=== PATIENT | female | born 1980 | race Caucasian/White ===

== ENCOUNTER 2016-09-22 14:22 | Emergency (ER) | payer SELFPAY ==
--- NOTE | 2016-09-22 15:12 | ER Document Report ---
ED Medical Screen (RME) - General Stated Complaint: PSYCH EVAL Notes: patient has a h/o ADD on adderall no mental h/o, denies depression, bipolar patient has been having hallucinations about relationships with famous people denies SI, HI I have greeted and performed a rapid initial assessment of this patient. A comprehensive ED assessment and evaluation of the patient, analysis of test results and completion of the medical decision making process will be conducted by additional ED providers. Physical Exam - Vital signs Vitals: Temp Pulse Resp BP Pulse Ox 98.0 F 120 H 20 153/95 H 100 09/22/16 14:42 09/22/16 14:42 09/22/16 14:42 09/22/16 14:42 09/22/16 14:42 Course - Vital Signs Vital signs: Temp Pulse Resp BP Pulse Ox 98.0 F 120 H 20 153/95 H 100 09/22/16 14:42 09/22/16 14:42 09/22/16 14:42 09/22/16 14:42 09/22/16 14:42
--- NOTE | 2016-09-22 15:42 | ER Document Report ---
ED Psych Disorder / Suicide - General Time seen by provider: 16:15 Mode of Arrival: Medic Information source: Patient, Parent TRAVEL OUTSIDE OF THE [place] IN LAST 30 DAYS: No - HPI Patient complains to provider of: Bizarre behavior Onset: Other - see HPI notes <CELIA BOYD - Last Filed: 09/22/16 17:25> <CECILIA WHITE - Last Filed: 09/22/16 19:29> - General Chief Complaint: Other Stated Complaint: PSYCH EVAL Notes: Patient is a 36-year-old female presenting to the emergency department for a psych evaluation. Patient states that she got out of the shower and her mother was crying on the couch. Patient states that her parents were not letting her leave the house and they called EMS to bring her into the emergency department. Patient states she does not know why she is here. Per triage note "patient states that she is having problems at home. Patient states that she was told she couldn't leave the house by her parents. Father of patient states that this patient is seeing and hearing things. States that she knows people that she doesn't know such as Rick Santoro. Father states that this patient is saying that people are taking things from her that aren't there. Patient denies hurting anyone in the house or herself. Patient states that she doesn't work." Patient denies any hallucinations, or previous psychiatric behavior/medical history. Patient states she just takes Adderall for her ADD. Patient is allergic to cefaclor and penicillin. Patient states that her parents are in the lobby and that they are the ones to talk to about why she is here. Patient is quickly scribbling and writing in a notebook at time of exam. (CELIA BOYD) - Related Data Allergies/Adverse Reactions: cefaclor [From Ceclor] Allergy (Verified 09/22/16 15:07) Penicillins Adverse Reaction (Verified 09/22/16 15:07) Past Medical History - General Information source: Patient - Social History Smoking Status: Current Every Day Smoker Chew tobacco use (# tins/day): No Frequency of alcohol use: None Drug Abuse: Marijuana Family History: None Patient has suicidal ideation: No Patient has homicidal ideation: No Psychiatric Medical History: Reports: Other - ADD-treated with Adderall Surgical Hx: Negative <CELIA BOYD - Last Filed: 09/22/16 17:25> Review of Systems - Review of Systems Constitutional: No symptoms reported EENT: No symptoms reported Cardiovascular: No symptoms reported Respiratory: No symptoms reported Gastrointestinal: No symptoms reported Genitourinary: No symptoms reported Female Genitourinary: No symptoms reported Musculoskeletal: No symptoms reported Skin: No symptoms reported Hematologic/Lymphatic: No symptoms reported Neurological/Psychological: See HPI -: Yes All other systems reviewed and negative <DEBCELIA - Last Filed: 09/22/16 17:25> Physical Exam - Vital signs Interpretation: Tachycardic - General General appearance: Appears well, Alert In distress: None - HEENT Head: Normocephalic, Atraumatic Eyes: Normal Pupils: PERRL Mucous membranes: Moist - Respiratory Respiratory status: No respiratory distress Chest status: Nontender Breath sounds: Normal Chest palpation: Normal - Cardiovascular Rhythm: Regular, Tachycardia Heart sounds: Normal auscultation Murmur: No - Abdominal Inspection: Normal Distension: No distension Bowel sounds: Normal Tenderness: Nontender Organomegaly: No organomegaly - Back Back: Normal, Nontender - Extremities General upper extremity: Normal inspection, Normal ROM, Normal strength General lower extremity: Normal inspection, Normal ROM, Normal strength - Neurological Neuro grossly intact: Yes Cognition: Normal Orientation: AAOx4 [place] Coma Scale Eye Opening: Spontaneous [place] Coma Scale Verbal: Oriented Ricki Coma Scale Motor: Obeys Commands Ricki Coma Scale Total: 15 Speech: Normal - Psychological Associated symptoms: Uncooperative, Other - pressured speech - Skin Skin Temperature: Warm Skin Moisture: Dry <DEBCELIA - Last Filed: 09/22/16 17:25> Course <DEBCELIA - Last Filed: 09/22/16 17:25> - Laboratory Result Diagrams: 09/22/16 18:50 09/22/16 18:50 <CECILIA WHITE - Last Filed: 09/22/16 19:29> - Re-evaluation Re-evalutation: 09/22/16 19:23 Patient is a 36-year-old female who comes in because her family was concerned about her recent behavior. Patient apparently is having delusions of grandeur. Patient is apparently sleeping at night per mother. Patient has been evaluated by mental health and concern of elliot versus overuse of Adderall. Patient is going to be kept in the emergency department to be reevaluated in the morning. She denies suicidal or homicidal ideation. She apparently has been hallucinating although she denies. (CECILIA WHITE) - Vital Signs Vital signs: Temp Pulse Resp BP Pulse Ox 98 F 122 H 20 153/95 H 100 09/22/16 15:07 09/22/16 15:07 09/22/16 15:07 09/22/16 15:07 09/22/16 15:07 (CELIA BOYD) (CECILIA WHITE) - Laboratory Laboratory results interpreted by me: 09/22/16 18:50 Glucose 57 L Salicylates < 1.0 L Acetaminophen < 10 L (CECILIA WHITE) Discharge <CELIA BOYD - Last Filed: 09/22/16 17:25> <CECILIA WHITE - Last Filed: 09/22/16 19:29> - Discharge Clinical Impression: Behavior disturbance Condition: Stable Disposition: OTHER Scribe Attestation: 09/22/16 19:25 I personally performed the services described in the documentation, reviewed and edited the documentation which was dictated to the scribe in my presence, and it accurately records my words and actions. (CECILIA WHITE) Scribe Documentation - Scribe Written by Scribe:: Celia Boyd 09/22/16 16:35 acting as scribe for :: Candida <CELIA BOYD - Last Filed: 09/22/16 17:25>
[2016-09-22 15:55] LABS: URINE BARBITURATES SCREEN NEGATIVE; URINE METHADONE SCREEN NEGATIVE; URINE OPIATES LOW NEGATIVE; URINE PHENCYCLIDINE SCREEN NEGATIVE
[2016-09-22 19:04] LABS: ABSOLUTE BASOPHILS # (AUTO) 0.1 10^3/uL (0.0-0.2); ABSOLUTE EOSINOPHILS # (AUTO) 0.1 10^3/uL (0.0-0.6); ABSOLUTE LYMPHOCYTES (AUTO) 2.4 10^3/uL (0.5-4.7); ABSOLUTE MONOCYTES (AUTO) 0.6 10^3/uL (0.1-1.4); ABSOLUTE NEUT (AUTO) 6.1 10^3/uL (1.7-8.2); BASOPHILS % (AUTO) 0.7 % (0-2); HEMATOCRIT 43.6 % (36.0-47.0); HEMOGLOBIN 14.6 g/dL (12.0-15.5); HGB HCT DIFFERENCE 0.2; LYMPHOCYTES % (AUTO) 25.6 % (13-45); MEAN CORPUSCULAR HEMOGLOBIN 29.1 pg (27.0-33.4); MEAN CORPUSCULAR HGB CONC 33.5 g/dL (32.0-36.0); MEAN CORPUSCULAR VOLUME 87 fl (80-97); MONOCYTES % (AUTO) 6.5 % (3-13); RED BLOOD COUNT 5.01 10^6/uL (3.72-5.28); RED CELL DISTRIBUTION WIDTH 13.8 % (11.5-14.0); SEGMENTED NEUTROPHILS % (AUTO) 66.2 % (42-78); WHITE BLOOD COUNT 9.2 10^3/uL (4.0-10.5)
--- NOTE | 2016-09-22 19:11 | EKG REPORT ---
SEVERITY:- NORMAL ECG - SINUS RHYTHM : Confirmed by: Steven Atkins MD 22-Sep-2016 19:11:21
[2016-09-22 19:20] LABS: ALANINE AMINOTRANSFERASE 22 U/L (9-52); ALBUMIN 4.3 g/dL (3.5-5.0); ALKALINE PHOSPHATASE 57 U/L (38-126); ANION GAP 9 (5-19); ASPARTATE AMINO TRANSFERASE 15 U/L (14-36); BILIRUBIN,TOTAL 0.6 mg/dL (0.2-1.3); BLOOD UREA NITROGEN 11 mg/dL (7-20); CARBON DIOXIDE 30 mmol/L (22-30); CHLORIDE 101 mmol/L (98-107); CREATININE RESULT 0.69 mg/dL (0.52-1.25); GLUCOSE 57 mg/dL (75-110); POTASSIUM 3.7 mmol/L (3.6-5.0); SODIUM 140.2 mmol/L (137-145); TOTAL PROTEIN 7.4 g/dL (6.3-8.2)
[2016-09-22 19:22] LABS: ALCOHOL < 10 mg/dL (NONE DETECTED)
[2016-09-23 02:56] LABS: APPEARANCE,URINE CLOUDY; BILIRUBIN,URINE NEGATIVE (NEGATIVE); GLUCOSE, URINE NEGATIVE (NEGATIVE); KETONES,URINE NEGATIVE (NEGATIVE); LEUKOCYTE ESTERASE,URINE NEGATIVE (NEGATIVE); NITRITE,URINE NEGATIVE (NEGATIVE); PROTEIN,URINE NEGATIVE (NEGATIVE); URINE SPECIFIC GRAVITY 1.024; UROBILINOGEN,URINE NEGATIVE mg/dL (<2.0)
[2016-09-23 11:14] VITALS: BP 131/94
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
== END 2016-09-23 12:04 | disposition home or self-care (01) ==
LOC: ER 14:22
DX: F91.9 Conduct disorder, unspecified (principal); F98.8 Other specified behavioral and emotional disorders with onset usually occurring in childhood and adolescence; R00.0 Tachycardia, unspecified; Z79.899 Other long term (current) drug therapy; Z88.0 Allergy status to penicillin; Z88.1 Allergy status to other antibiotic agents
CPT/HCPCS: 36415; 80053; 80307; 81001; 84703; 85025; 93005; 93010; 99285

== ENCOUNTER → 2017-09-18 | Outpatient (CLI) | payer SELFPAY ==
--- NOTE | 2017-09-18 16:14 | RADIOLOGY REPORT (SQ) ---
EXAM DESCRIPTION: SHOULDER RIGHT 2 OR MORE VIEWS COMPLETED DATE/TIME: 09/18/2017 4:02 pm REASON FOR STUDY: PAIN IN RIGHT SHOULDER M25.511 PAIN IN RIGHT SHOULDER COMPARISON: None. NUMBER OF VIEWS: Three views. TECHNIQUE: Internal rotation, external rotation, and Y view images acquired of the right shoulder. LIMITATIONS: None. FINDINGS: MINERALIZATION: Normal. BONES: No acute fracture or dislocation. No worrisome bone lesions. JOINTS: No dislocation. VISUALIZED LUNGS AND RIBS: No pneumothorax. No rib fracture. SOFT TISSUES: No radiopaque foreign body. OTHER: No other significant finding. IMPRESSION: NEGATIVE STUDY OF THE RIGHT SHOULDER. NO RADIOGRAPHIC EVIDENCE OF ACUTE INJURY. TECHNICAL DOCUMENTATION: JOB ID: [id number] [employer]- All Rights Reserved
== END ==
LOC: OD 15:36
PROVIDERS: ATTEND Nurse Practitioner Family
DX: M25.511 Pain in right shoulder (principal)

== ENCOUNTER 2018-02-28 16:16 | Emergency (ER) | payer BC ==
[2018-02-28 16:19] VITALS: BP 151/96
[2018-02-28] MEDS ORDERED: CYCLOBENZAPRINE HCL 10 MG TABLET PO ONE (16:44)
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
== END 2018-02-28 16:56 | disposition home or self-care (01) ==
LOC: ER 16:16
DX: G89.29 Other chronic pain (principal); M25.511 Pain in right shoulder; M89.8X1 Other specified disorders of bone, shoulder; Z79.891 Long term (current) use of opiate analgesic; Z79.899 Other long term (current) drug therapy; S43.401A Unspecified sprain of right shoulder joint, initial encounter; Y04.0XXA Assault by unarmed brawl or fight, initial encounter; R45.1 Restlessness and agitation
CPT/HCPCS: 99283

== ENCOUNTER 2018-11-17 16:33 | Emergency (ER) | payer SELFPAY ==
[2018-11-17 17:39] LABS: ABSOLUTE BASOPHILS # (AUTO) 0.1 10^3/uL (0.0-0.2); ABSOLUTE EOSINOPHILS # (AUTO) 0.1 10^3/uL (0.0-0.6); ABSOLUTE MONOCYTES (AUTO) 0.7 10^3/uL (0.1-1.4); ABSOLUTE NEUT (AUTO) 6.8 10^3/uL (1.7-8.2); BASOPHILS % (AUTO) 0.5 % (0-2); EOSINOPHILS % (AUTO) 1.4 % (0-6); HEMATOCRIT 37.7 % (36.0-47.0); LYMPHOCYTES % (AUTO) 28.1 % (13-45); MEAN CORPUSCULAR HEMOGLOBIN 29.7 pg (27.0-33.4); MEAN CORPUSCULAR HGB CONC 34.5 g/dL (32.0-36.0); MEAN CORPUSCULAR VOLUME 86 fl (80-97); MONOCYTES % (AUTO) 6.2 % (3-13); PLATELET COUNT 311 10^3/uL (150-450); RED BLOOD COUNT 4.38 10^6/uL (3.72-5.28); RED CELL DISTRIBUTION WIDTH 13.6 % (11.5-14.0); SEGMENTED NEUTROPHILS % (AUTO) 63.8 % (42-78); TOTAL CELLS COUNTED % (AUTO) 100 %; WHITE BLOOD COUNT 10.6 10^3/uL (4.0-10.5)
[2018-11-17 17:44] LABS: APPEARANCE,URINE SLIGHTLY-CLOUDY; BILIRUBIN,URINE NEGATIVE (NEGATIVE); COLOR,URINE YELLOW; GLUCOSE, URINE NEGATIVE (NEGATIVE); KETONES,URINE NEGATIVE (NEGATIVE); LEUKOCYTE ESTERASE,URINE NEGATIVE (NEGATIVE); NITRITE,URINE POSITIVE (NEGATIVE); PROTEIN,URINE NEGATIVE (NEGATIVE); URINE SPECIFIC GRAVITY 1.013; UROBILINOGEN,URINE NEGATIVE mg/dL (<2.0)
[2018-11-17 17:52] LABS: ALANINE AMINOTRANSFERASE 30 U/L (9-52); ALKALINE PHOSPHATASE 85 U/L (38-126); ANION GAP 10 (5-19); ASPARTATE AMINO TRANSFERASE 25 U/L (14-36); BILIRUBIN,DIRECT 0.3 mg/dL (0.0-0.4); BILIRUBIN,TOTAL 0.4 mg/dL (0.2-1.3); BLOOD UREA NITROGEN 11 mg/dL (7-20); CALCIUM 9.8 mg/dL (8.4-10.2); CARBON DIOXIDE 27 mmol/L (22-30); CHLORIDE 101 mmol/L (98-107); GLUCOSE 90 mg/dL (75-110); SODIUM 137.6 mmol/L (137-145); TOTAL PROTEIN 6.9 g/dL (6.3-8.2)
[2018-11-17 18:02] LABS: URINE AMPHETAMINES SCREEN NEGATIVE; URINE BARBITURATES SCREEN NEGATIVE; URINE BENZODIAZEPINES SCREEN NEGATIVE; URINE COCAINE SCREEN NEGATIVE; URINE MARIJUANA (THC) SCREEN UNCONFIRMED POSITIVE; URINE METHADONE SCREEN UNCONFIRMED POSITIVE; URINE PHENCYCLIDINE SCREEN NEGATIVE
[2018-11-17 19:31] LABS: ACETAMINOPHEN < 10 ug/mL (10-30); ALCOHOL < 10 mg/dL (NONE DETECTED); POTASSIUM 3.7 mmol/L (3.6-5.0); SALICYLATE < 1.0 mg/dL (2.0-20.0)
[2018-11-17] MEDS ORDERED: ZOLPIDEM TARTRATE 5 MG TABLET PO PRN (19:43)
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
[2018-11-17] MEDS ORDERED: IBUPROFEN 600 MG TABLET PO ONE (21:57)
--- NOTE | 2018-11-18 08:47 | ER Document Report ---
ED Medical Screen (RME) - General Chief Complaint: Psych Problem Stated Complaint: PSYCH EVAL Time Seen by Provider: 11/17/18 19:41 Notes: Patient pending disposition by psychiatry. Patient was seen by me this morning no acute distress awake and alert, she does not have any acute complaints. We will discuss her with psychiatry later. TRAVEL OUTSIDE OF THE [place] IN LAST 30 DAYS: Yes - Related Data Allergies/Adverse Reactions: [facility] Allergy (Verified 02/28/18 16:16) Penicillins Adverse Reaction (Verified 02/28/18 16:16) Past Medical History - Social History Chew tobacco use (# tins/day): No Frequency of alcohol use: Occasional Drug Abuse: Marijuana Renal/ Medical History: Denies: Hx Peritoneal Dialysis Psychiatric Medical History: Reports: Hx Anxiety, Hx Attention Deficit Hyp eractivity Disorder Physical Exam - Vital signs Vitals: Temp Pulse Resp Pulse Ox 98.4 F 84 18 97 11/17/18 17:05 11/17/18 17:05 11/17/18 17:05 11/17/18 17:05 Course - Vital Signs Vital signs: Temp Pulse Resp BP Pulse Ox 98.0 F 86 16 154/94 H 98 11/17/18 20:54 11/17/18 20:54 11/17/18 22:00 11/17/18 20:54 11/17/18 20:54 - Laboratory Result Diagrams: 11/17/18 17:20 11/17/18 17:20 Laboratory results interpreted by me: 11/17/18 11/17/18 11/17/18 16:48 17:20 17:20 WBC 10.6 H Urine Blood MODERATE H Urine Nitrite POSITIVE H Salicylates < 1.0 L Acetaminophen < 10 L
[2018-11-18] MEDS ORDERED: HALOPERIDOL LACTATE INJ 5 MG/1 ML VIAL IM ONE (09:34)
[2018-11-18] MEDS ORDERED: BENZTROPINE MESYLATE INJ 2 MG/2 ML AMPULE IM ONE (09:35)
[2018-11-18] MEDS ORDERED: VENLAFAXINE HCL 37.5 MG CAP.SR.24H PO SCH (10:00)
[2018-11-18] MEDS ORDERED: BUSPIRONE HCL 10 MG TABLET PO SCH (10:00)
--- NOTE | 2018-11-18 11:20 | ER Document Report ---
Doctor's Note Notes: 11/18/18 11:19 Urine culture >100,000 gm negative rods. Will start Macrobid, pending Sensitivity report. Sheridan Hodges MD
[2018-11-18] MEDS ORDERED: NITROFURANTOIN MONOHYD/M-CRYST 100 MG CAPSULE PO SCH (11:30)
[2018-11-18 17:04] VITALS: BP 158/102
== END 2018-11-18 17:04 | disposition home or self-care (01) ==
LOC: ER 16:33
DX: F19.10 Other psychoactive substance abuse, uncomplicated (principal); F17.200 Nicotine dependence, unspecified, uncomplicated
CPT/HCPCS: 99284; 96372; 36415; 87086; 80307 ×4; 84703; 85025; 87088; 80053; 81001; 87186; J0515; J3490; J1630; J8499

== ENCOUNTER 2019-06-10 00:22 | Emergency (ER) | payer SELFPAY ==
--- NOTE | 2019-06-10 00:41 | ER Document Report ---
ED Substance Abuse / Acc. OD - General Chief Complaint: Psych Problem Stated Complaint: PSYCH Time Seen by Provider: 06/10/19 00:35 Notes: Patient is a 39-year-old female that comes from home by EMS for chief complaint of substance abuse and strange behavior. Patient admitted to taking Xanax tonight from her mom's "stash from [place]" in order to "sleep", she states she took 4 but mom reported that there were 9 pills missing per EMS. Patient also reports smoking a little bit of marijuana but denies recreational drugs otherwise. She also cut the tips of her fingers with a razorblade and smeared the blood on her face because "I was bored". She cut the right 4th and 5th and the left index fingers. She is not up to date on her tetanus. She denies suicidal homicidal ideations. She states that she cut herself because she was tired of being told what to do and "to hell with being good". She does have a history of anxiety/depression and was previous on Effexor and BuSpar. TRAVEL OUTSIDE OF THE [place] IN LAST 30 DAYS: Yes - Related Data Allergies/Adverse Reactions: cefaclor [From [facility]] Allergy (Verified 02/28/18 16:16) Penicillins Adverse Reaction (Verified 02/28/18 16:16) Past Medical History - General Information source: Patient - Social History Smoking Status: Never Smoker Frequency of alcohol use: Occasional Drug Abuse: Prescription drugs Lives with: Family Family History: None Renal/ Medical History: Denies: Hx Peritoneal Dialysis Psychiatric Medical History: Reports: Hx Anxiety, Hx Attention Deficit Hyperactivity Disorder - Immunizations Immunizations up to date: No Hx Diphtheria, Pertussis, Tetanus Vaccination: Yes Review of Systems - Review of Systems Constitutional: No symptoms reported EENT: No symptoms reported Cardiovascular: No symptoms reported Respiratory: No symptoms reported Gastrointestinal: No symptoms reported Genitourinary: No symptoms reported Female Genitourinary: No symptoms reported Musculoskeletal: See HPI Skin: See HPI Hematologic/Lymphatic: No symptoms reported Neurological/Psychological: See HPI Physical Exam - Vital signs Vitals: Pulse Resp BP Pulse Ox 107 H 16 129/85 H 100 06/10/19 00:54 06/10/19 00:54 06/10/19 00:54 06/10/19 00:54 - Notes Notes: GENERAL: Alert, talking excessively, does not appear to be in distress HEAD: Normocephalic, atraumatic. EYES: Pupils equal, round, and reactive to light. Extraocular movements intact. ENT: Oral mucosa moist, tongue midline. Oropharynx unremarkable. Airway patent. LUNGS: Clear to auscultation bilaterally, no wheezes, rales, or rhonchi. No respiratory distress. HEART: Regular rate and rhythm. No murmur ABDOMEN: Soft, non-tender. Non-distended. Bowel sounds present in all 4 quadrants. GENITOURINARY: Deferred EXTREMITIES: Tiny very superficial linear less than half centimeter cuts over th e left index finger and fourth and fifth fingers on the right hand over the finger pads. Normal range of motion of the fingers, capillary refill and sensation, normal hand and arm exam is otherwise. Normal leg exams. BACK: no cervical, thoracic, lumbar midline tenderness. No saddle anesthesia, normal distal neurovascular exam. Moves all extremities in full range of motion. NEUROLOGICAL: Alert and oriented x3. Very rarely slurring her words. Cranial nerves II through XII grossly intact. PSYCH: Expansive mood, talking incessantly SKIN: Warm, dry, normal turgor. No rashes or lesions noted. Course - Re-evaluation Re-evalutation: Patient is talking rapidly, is extremely talkative with almost pressured speech at times, she is borderline tachycardic. Pupils are unremarkable. She is not diaphoretic or flushed. She is cooperative. She denies SI or HI. 06/10/19 01:05 Spoke to Leslie with poison control. She states that based on patient's tachycardia and rapid speech patterns she is either on something different than Xanax or she is stimulated and if left alone she might then feel the effects. She recommends a tox screen, IV fluid hydration, and monitoring for 4 to 6 hours based on the reported dose of Xanax ingestion. She recommends IV flumazenil if needed for severe sedation and apnea. She does not have any additional recommendations. 06/10/19 07:03 Patient has been reevaluated twice more. She is easily arousable and alert. She is medically cleared by poison control recommendations for monitoring times. She has been given IV fluids, she did not ever require flumazenil or any interventions because she did not become apneic or hypoxic. She remained easily arousable. She did have 15 alcohol and positive benzos on drug screen, unremarkable otherwise. She does have positive nitrites, her work-up is otherwise unremarkable. Patient does state that she started to self treat with Macrobid and took 2 doses but ran out. She states she needs more of this. She does not have abdominal pain, flank pain, fever, vomiting. I discussed with patient. I had discussed with Dr. Campbell as well, because patient is not suicidal, homicidal, was trying to take medications to sleep, and essentially made an act out of boredom and to make clear her independence she is not meeting criteria for IVC. Patient states she does not want to go home. She states she does not want to be at home anymore but she does not know what to do. She states she wants to stay and talk to her mental health team to talk things through. Consult was placed, patient is medically cleared awaiting mental health consultation. - Vital Signs Vital signs: Temp Pulse Resp BP Pulse Ox 97.7 F 101 H 22 H 101/70 100 06/10/19 05:58 06/10/19 05:58 06/10/19 06:01 06/10/19 06:01 06/10/19 06:01 - Laboratory Result Diagrams: 06/10/19 01:30 06/10/19 01:30 Laboratory results interpreted by me: 06/10/19 06/10/19 00:48 01:30 Glucose 60 L Urine Blood SMALL H Urine Nitrite POSITIVE H Salicylates < 1.0 L Acetaminophen < 10 L Discharge - Discharge Clinical Impression: Recreational drug use Urinary tract infection Qualifiers: Urinary tract infection type: site unspecified Hematuria presence: without hematuria Qualified Code(s): N39.0 - Urinary tract infection, site not specified Condition: Stable Disposition: PSYCH HOSP/UNIT Prescriptions: Nitrofurantoin/Nitrofuran Mac [Macrobid 100 mg Capsule] 1 tab PO BID 3 Days #6 c apsule
[2019-06-10] MEDS ORDERED: NORMAL SALINE 1000 ML 1,000 ML IV ONE (01:06)
[2019-06-10 01:07] LABS: APPEARANCE,URINE CLEAR; BILIRUBIN,URINE NEGATIVE (NEGATIVE); COLOR,URINE COLORLESS; GLUCOSE, URINE NEGATIVE (NEGATIVE); KETONES,URINE NEGATIVE (NEGATIVE); LEUKOCYTE ESTERASE,URINE NEGATIVE (NEGATIVE); NITRITE,URINE POSITIVE (NEGATIVE); PROTEIN,URINE NEGATIVE (NEGATIVE); UROBILINOGEN,URINE NEGATIVE mg/dL (<2.0)
[2019-06-10 01:09] LABS: URINE SPECIFIC GRAVITY 1.003
[2019-06-10] MEDS ORDERED: DIPH/PERTUSS(ACELL)/TETANUS VAC/PF 0.5 ML SYR (>=10YO) IM ONE (01:38)
[2019-06-10 01:42] LABS: ABSOLUTE BASOPHILS # (AUTO) 0.1 10^3/uL (0.0-0.2); ABSOLUTE EOSINOPHILS # (AUTO) 0.5 10^3/uL (0.0-0.6); ABSOLUTE MONOCYTES (AUTO) 0.8 10^3/uL (0.1-1.4); ABSOLUTE NEUT (AUTO) 4.5 10^3/uL (1.7-8.2); BASOPHILS % (AUTO) 0.7 % (0-2); EOSINOPHILS % (AUTO) 4.6 % (0-6); HEMATOCRIT 37.9 % (36.0-47.0); HEMOGLOBIN 12.6 g/dL (12.0-15.5); LYMPHOCYTES % (AUTO) 40.7 % (13-45); MEAN CORPUSCULAR HEMOGLOBIN 29.7 pg (27.0-33.4); MEAN CORPUSCULAR HGB CONC 33.3 g/dL (32.0-36.0); MEAN CORPUSCULAR VOLUME 89 fl (80-97); MONOCYTES % (AUTO) 8.5 % (3-13); PLATELET COUNT 350 10^3/uL (150-450); RED BLOOD COUNT 4.25 10^6/uL (3.72-5.28); RED CELL DISTRIBUTION WIDTH 13.5 % (11.5-14.0); SEGMENTED NEUTROPHILS % (AUTO) 45.5 % (42-78); TOTAL CELLS COUNTED % (AUTO) 100 %; WHITE BLOOD COUNT 9.9 10^3/uL (4.0-10.5)
[2019-06-10 01:50] LABS: URINE AMPHETAMINES SCREEN NEGATIVE; URINE BARBITURATES SCREEN NEGATIVE; URINE BENZODIAZEPINES SCREEN UNCONFIRMED POSITIVE; URINE COCAINE SCREEN NEGATIVE; URINE MARIJUANA (THC) SCREEN NEGATIVE; URINE METHADONE SCREEN NEGATIVE; URINE PHENCYCLIDINE SCREEN NEGATIVE
[2019-06-10 02:02] LABS: ALBUMIN 4.1 g/dL (3.5-5.0); ALCOHOL 15 mg/dL (NONE DETECTED); ALKALINE PHOSPHATASE 67 U/L (38-126); ANION GAP 9 (5-19); ASPARTATE AMINO TRANSFERASE 23 U/L (14-36); BILIRUBIN,DIRECT 0.2 mg/dL (0.0-0.4); BILIRUBIN,TOTAL 0.2 mg/dL (0.2-1.3); BLOOD UREA NITROGEN 11 mg/dL (7-20); CALCIUM 9.8 mg/dL (8.4-10.2); CARBON DIOXIDE 27 mmol/L (22-30); CHLORIDE 105 mmol/L (98-107); POTASSIUM 3.7 mmol/L (3.6-5.0); TOTAL PROTEIN 6.7 g/dL (6.3-8.2)
[2019-06-10 02:03] LABS: ACETAMINOPHEN < 10 ug/mL (10-30); SALICYLATE < 1.0 mg/dL (2.0-20.0)
[2019-06-10 02:05] LABS: GLUCOSE 60 mg/dL (75-110)
[2019-06-10] MEDS ORDERED: NITROFURANTOIN MONOHYD/M-CRYST 100 MG CAPSULE PO ONE (07:03)
--- NOTE | 2019-06-10 07:31 | EKG REPORT ---
SEVERITY:- OTHERWISE NORMAL ECG - SINUS TACHYCARDIA : Confirmed by: Steven Atkins MD 10-Jun-2019 07:31:11
[2019-06-10] MEDS ORDERED: OLANZAPINE 5 MG TAB.RAPDIS PO ONE (09:54)
[2019-06-10 10:12] VITALS: BP 106/80
--- NOTE | 2019-06-10 10:43 | PSYCHOLOGICAL NOTE ---
Psych Note - Psych Note Date seen by psych provider: 06/10/19 Time seen by psych provider: 08:20 Psych Note: Reason for Consult: Patient request/manic Pt presents to ED via EMS from home for c/o psych related issues. Pt reportedly took 3-4 of her mother's Xanax (pt believes they were 1mg) in attempts to sleep. Pt denies attempting to harm or kill self in this attempt. Mother states she gives xanax to pt intermittently d/t pt having issues with anxiety and being abl e to sleep. Pt also cut finger tips superficially with a razor blade and wiped blood on face stating "I was just bored". Patient reports that she hates living with her parents because her mother works in mental health" I have given the best years of my life to her and I have nothing left." She reports that her parents went on vacation for 11 days but are now back and continues to feel that she is unwanted. Patient was asked about previous medications that she was started on during previous evaluation she reports "my mom took me off the my medication because my mom knows everything." Patient then becomes agitated and reports that there is no point in her providing any background information because everybody always believes her mother over her. She confirms she took Xanax that was not prescribed to her stating that her mother got the Xanax while she (her mother) was in [place]. She denies any thoughts of wanting to harm herself or others and states that she plans to return home to her parents house. She confirms she will take resources however reports she will probably not follow-up. Clinician conducted psychoeducation and encouraged the patient to follow-up with both substance abuse and mental health services. Patient is alert and orientated to person, place, time and circumstance. Mood is irritable with congruent affect. Patient denies suicidal homicidal ideations. Delusions are absent behaviors congruent with an intact reality based presentation i.e. organized linear thought process. Eye contact is fair. Conversational speech clearly demonstrates her irritability this is believed to be connected to withdrawal symptoms. Intellectual abilities appear to be within the average range. Attention and concentration are fair. Insight, judgment, impulse control are fair. Medication recommendations per [facility]'s contracted psychiatrist Dr. Brad CANCINO are as follows Zypreexa Zydis 5mg once Polysubstance use disorder: Benzodiazepine Cannabis per history Methadone per history amphetamine per history Impression\\plan: Patient is cleared from acute psychiatric services. Patient's presentation is similar to previous evaluations. There is concern the patient has an underling mood disorder; unfortunately, due to her ongoing Substance abuse it is difficult to obtain a true reflection of her symptoms for diagnostic purposes (she consistently uses multiple types of medications that are not prescribed to her and historically cannabis). Patient presents hypomanic however denies suicidal and homicidal ideation. Patient is not demonstrating any behaviors of responding to internal stimuli as evidenced by maintaining good eye contact, organized and linear thought processes and normal conversational speech. Since patient does not meet IVC criteria, she can develop and self- determine course of chen of care/treatment. Patient is highly encouraged to follow through with outpatient mental health and substance use services and was provided these resources. Dr. Sanchez was consulted to care management of this patient; attending physicians in agreement with recommendations and disposition.
== END 2019-06-10 10:53 | disposition home or self-care (01) ==
LOC: ER 00:22
DX: F19.90 Other psychoactive substance use, unspecified, uncomplicated (principal); N39.0 Urinary tract infection, site not specified; S61.211A Laceration without foreign body of left index finger without damage to nail, initial encounter; S61.216A Laceration without foreign body of right little finger without damage to nail, initial encounter; S61.214A Laceration without foreign body of right ring finger without damage to nail, initial encounter; X78.9XXA Intentional self-harm by unspecified sharp object, initial encounter; Z88.0 Allergy status to penicillin
CPT/HCPCS: 93005; 36415; 82962; 80307 ×4; 84703; 85025; 80053; 81001; 93010; J7030; J8499; 87086; 87088; 96360; 99285

== ENCOUNTER 2019-12-23 00:32 | Emergency (ER) | payer BC ==
[2019-12-23] MEDS ORDERED: LORAZEPAM INJ 2 MG/1 ML VIAL IM ONE (01:20)
[2019-12-23 01:27] LABS: APPEARANCE,URINE SLIGHTLY-CLOUDY; BILIRUBIN,URINE NEGATIVE (NEGATIVE); COLOR,URINE YELLOW; GLUCOSE, URINE NEGATIVE (NEGATIVE); KETONES,URINE NEGATIVE (NEGATIVE); LEUKOCYTE ESTERASE,URINE NEGATIVE (NEGATIVE); NITRITE,URINE POSITIVE (NEGATIVE); PROTEIN,URINE NEGATIVE (NEGATIVE); URINE SPECIFIC GRAVITY 1.005; UROBILINOGEN,URINE NEGATIVE mg/dL (<2.0)
--- NOTE | 2019-12-23 01:34 | ER Document Report ---
ED Psych Disorder / Suicide - General Chief Complaint: Psych Problem Stated Complaint: PSYCH Time Seen by Provider: 12/23/19 01:05 Notes: Patient is a 39-year-old female who presents emergency department with IVC paperwork. According to the IVC paperwork, the patient stated that she did not want to live anymore and she want someone to blow her brains out. Paperwork also states that she would like to lay down and never wake up. Patient was also intoxicated, which she admits to. Patient was also offering 6 to other people and was weaving in and out of traffic. Patient states that she loves sex. TRAVEL OUTSIDE OF THE [place] IN LAST 30 DAYS: Yes - Related Data Allergies/Adverse Reactions: cefaclor [From [facility]] Allergy (Verified 02/28/18 16:16) Penicillins Adverse Reaction (Verified 02/28/18 16:16) Past Medical History - Social History Smoking Status: Never Smoker Frequency of alcohol use: Occasional Drug Abuse: None Family History: None Patient has homicidal ideation: No Renal/ Medical History: Denies: Hx Peritoneal Dialysis Psychiatric Medical History: Reports: Hx Anxiety, Hx Attention Deficit Hyperactivity Disorder - Immunizations Immunizations up to date: No Hx Diphtheria, Pertussis, Tetanus Vaccination: Yes Review of Systems - Review of Systems Notes: REVIEW OF SYSTEMS: CONSTITUTIONAL : Denies recent illness. Denies recent unintentional weight loss. Denies fever, chills, or sweats. EENT: Denies eye, ear, throat, or mouth pain, discharge, or symptoms. Denies nasal or sinus congestion. CARDIOVASCULAR: Denies chest pain. RESPIRATORY: Denies shortness of breath, cough, congestion, difficulty breathing, or wheezing. GASTROINTESTINAL: Denies nausea, vomiting, and diarrhea. Denies abdominal pain. Denies constipation. GENITOURINARY: Denies difficulty urinating, burning, blood in urine, urgency or frequency. MUSCULOSKELETAL: Denies neck and back pain. Denies joint pain or swelling. SKIN: Denies rash, itchiness, or lesions HEMATOLOGIC : Denies easy bruising or bleeding. LYMPHATIC: Denies swollen, painful, enlarged glands. NEUROLOGICAL: Denies no numbness or tingling denies weakness. Denies headache. Denies altered mental status. Denies alteration in speech. PSYCHIATRIC: See HPI. All other systems reviewed and negative. Physical Exam - Vital signs Vitals: Temp Pulse Resp BP Pulse Ox 97.7 F 136 H 15 143/123 H 98 12/23/19 00:48 12/23/19 00:48 12/23/19 00:48 12/23/19 00:48 12/23/19 00:48 - Notes Notes: PHYSICAL EXAMINATION: GENERAL: Appears well, healthy, well-nourished, no acute distress. HEAD: Normocephalic, atraumatic. EYES: PERRL, conjunctiva normal, all extraocular movements intact, sclera nonicteric ENT: Moist mucous membranes. NECK: Supple, no noticeable swelling, redness, rash. Normal range of motion. LUNGS: Equal breath sounds bilaterally and clear to auscultation. No wheezes rales or rhonchi. CARDIOVASCULAR: S1-S2, regular rate, regular rhythm. Radial pulses 2+, normal. ABDOMEN: Normoactive bowel sounds. Soft, nontender, no guarding, no rebound tenderness, and no masses palpated. EXTREMITIES: Normal strength and range of motion, no pitting or edema. No cyanosis. NEUROLOGICAL: Moves all extremities upon command. Strength 5/5 in all extremities. PSYCH: Elated mood. Attempting to walk away. SKIN: Warm, dry. No rash, lesions, ulcerations noted. Normal skin turgor. Course - Re-evaluation Re-evalutation: 12/23/19 05:20 Patient dancing provocatively in doorway. Haldol ordered. 12/23/19 06:12 Hematology is unremarkable. Chemistries are also unremarkable. hCG is negative. LFTs are normal. Urinalysis shows nitrites and her urine along with blood. Patient was positive for amphetamines. Serum alcohol was 229. Salicylates and acetaminophen level were negative. At this time, the patient is medically clear for mental health evaluation by Dr. Sanchez and staff. 12/23/19 07:34 Patient is resting comfortably in bed after receiving Haldol. Is the first time she slept all night. - Vital Signs Vital signs: Temp Pulse Resp BP Pulse Ox 97.7 F 136 H 15 143/123 H 98 12/23/19 00:48 12/23/19 00:48 12/23/19 00:48 12/23/19 00:48 12/23/19 00:48 - Laboratory Result Diagrams: 12/23/19 01:36 12/23/19 01:36 Laboratory results interpreted by me: 12/23/19 12/23/19 01:12 01:36 Glucose 118 H Urine Blood LARGE H Urine Nitrite POSITIVE H Salicylates < 1.0 L Acetaminophen < 10 L Discharge - Discharge Clinical Impression: Suicidal ideation Condition: Stable Disposition: PSYCH HOSP/UNIT
[2019-12-23 01:45] LABS: ABSOLUTE BASOPHILS # (AUTO) 0.1 10^3/uL (0.0-0.2); ABSOLUTE LYMPHOCYTES (AUTO) 3.3 10^3/uL (0.5-4.7); ABSOLUTE MONOCYTES (AUTO) 0.6 10^3/uL (0.1-1.4); ABSOLUTE NEUT (AUTO) 4.6 10^3/uL (1.7-8.2); BASOPHILS % (AUTO) 0.9 % (0-2); EOSINOPHILS % (AUTO) 0.2 % (0-6); HEMATOCRIT 41.8 % (36.0-47.0); HEMOGLOBIN 14.6 g/dL (12.0-15.5); LYMPHOCYTES % (AUTO) 38.4 % (13-45); MEAN CORPUSCULAR HEMOGLOBIN 30.3 pg (27.0-33.4); MEAN CORPUSCULAR HGB CONC 34.9 g/dL (32.0-36.0); MEAN CORPUSCULAR VOLUME 87 fl (80-97); MONOCYTES % (AUTO) 7.3 % (3-13); PLATELET COUNT 266 10^3/uL (150-450); RED BLOOD COUNT 4.81 10^6/uL (3.72-5.28); RED CELL DISTRIBUTION WIDTH 13.9 % (11.5-14.0); SEGMENTED NEUTROPHILS % (AUTO) 53.2 % (42-78); TOTAL CELLS COUNTED % (AUTO) 100 %; WHITE BLOOD COUNT 8.7 10^3/uL (4.0-10.5)
[2019-12-23] MEDS ORDERED: NORMAL SALINE 1000 ML 1,000 ML IV ONE (02:04)
[2019-12-23] MEDS ORDERED: LORAZEPAM INJ 2 MG/1 ML VIAL IV ONE (02:06)
[2019-12-23 02:12] LABS: ALBUMIN 4.9 g/dL (3.5-5.0); ALCOHOL 229 mg/dL (NONE DETECTED); ALKALINE PHOSPHATASE 67 U/L (38-126); ANION GAP 8 (5-19); ASPARTATE AMINO TRANSFERASE 20 U/L (14-36); BILIRUBIN,TOTAL 0.4 mg/dL (0.2-1.3); BLOOD UREA NITROGEN 12 mg/dL (7-20); CALCIUM 9.1 mg/dL (8.4-10.2); CARBON DIOXIDE 30 mmol/L (22-30); CHLORIDE 106 mmol/L (98-107); GLUCOSE 118 mg/dL (75-110); TOTAL PROTEIN 7.9 g/dL (6.3-8.2)
[2019-12-23 02:13] LABS: ACETAMINOPHEN < 10 ug/mL (10-30); SALICYLATE < 1.0 mg/dL (2.0-20.0)
[2019-12-23 02:21] LABS: URINE BARBITURATES SCREEN NEGATIVE; URINE BENZODIAZEPINES SCREEN NEGATIVE; URINE COCAINE SCREEN NEGATIVE; URINE MARIJUANA (THC) SCREEN NEGATIVE; URINE METHADONE SCREEN NEGATIVE; URINE PHENCYCLIDINE SCREEN NEGATIVE
[2019-12-23 02:27] LABS: URINE AMPHETAMINES SCREEN UNCONFIRMED POSITIVE
[2019-12-23] MEDS ORDERED: HALOPERIDOL LACTATE INJ 5 MG/1 ML VIAL IM ONE (05:20)
[2019-12-23] MEDS ORDERED: HALOPERIDOL LACTATE INJ 5 MG/1 ML VIAL ONE (05:28)
[2019-12-23 15:46] VITALS: BP 134/87
--- NOTE | 2019-12-24 08:32 | EKG REPORT ---
SEVERITY:- OTHERWISE NORMAL ECG - SINUS TACHYCARDIA : Confirmed by: Hiwot Munoz 24-Dec-2019 08:32:15
== END 2019-12-23 15:46 | disposition home or self-care (01) ==
LOC: ER 00:32
DX: R45.851 Suicidal ideations (principal); F19.10 Other psychoactive substance abuse, uncomplicated; F10.129 Alcohol abuse with intoxication, unspecified; Z88.0 Allergy status to penicillin; Z88.1 Allergy status to other antibiotic agents
CPT/HCPCS: 93005; 99285; 96372; 96360; 36415; 80307 ×4; 84703; 85025; 80053; 81001; 93010; J2060; J7030